=== PATIENT | female | born 1990 | race Caucasian/White ===

== ENCOUNTER 2020-05-23 22:54 | Emergency (ER) | payer OTHER ==
[~2020-05-23] VITALS: Ht 177.8 cm; Wt 100.0 kg
[2020-05-23 22:57] VITALS: BP 136/92
--- NOTE | 2020-05-23 23:50 | NUR ---
patient refused all medical care and treatment after talking with provider.
== END 2020-05-23 23:55 | disposition home or self-care (01) ==
LOC: EDBD → ER 22:56
DX: Z02.89 Encounter for other administrative examinations (principal); F43.20 Adjustment disorder, unspecified
CPT/HCPCS: 99281

== ENCOUNTER 2020-05-25 20:45 | Emergency (ER) | payer OTHER ==
[~2020-05-25] VITALS: Ht 182.9 cm; Wt 131.8 kg
[2020-05-25] MEDS ORDERED: diphenhydrAMINE 50 mg/ml inj IM ONE (20:50)
[2020-05-25] MEDS ORDERED: haloperidol lactate 5mg/ml inj IM ONE (20:50)
[2020-05-25] MEDS ORDERED: LORazepam 2 mg/ml vial IM ONE (20:50)
[2020-05-25] MEDS ORDERED: ziprasidone IM 20mg inj **IM only IM ONE (21:35)
--- NOTE | 2020-05-25 21:36 | NUR ---
pt fighting restrains and unable to follow instructions. Unable to obtain full set of vital. Only Blood pressure available at this time. Pt in view of nursing station to observe for distress.
--- NOTE | 2020-05-25 22:13 | NUR ---
PT MUCH MORE CALM AND FOLLOWING SAFETY INSTRUCTIONS AT THIS TIME. THERE ARE MULTIPLE GLASS FRAGMENTS IN THE BED ON AND ON HER PERSON. PT WAS CHANGED INTO GREEN SCRUBS AND FOAM TAPE WAS USED TO HELP REMOVE GLASS SHARDS. SHE IS GIVEN WATER WELL.
--- NOTE | 2020-05-25 23:08 | NUR ---
Spoke with Pastor Morgan Franco regarding patient's status: According to the coo, the patient had worsening psychotic behavior since she left the ED on her last visit. He stated that her erratic behavior including anger towards people who care about her and resisting any help increased his concern. She was taken to [facility] for evaluation, but refused care and continued to deteriorate psychologically. Her mom is flying from [place] to assist the patient in flying back to [place] on her scheduled flight Tuesday. added that the patient omitted on her [employer] application that she had a similar psychiatric episode 1 year ago. Alivia /Cheryl Phone number: [phone] [place] : [phone]
[2020-05-25 23:22] LABS: BASOPHILS % (AUTO) 0.2 % (0-1); EOSINOPHILS # (AUTO) 0.1 X10'3 (0-0.9); EOSINOPHILS % (AUTO) 0.6 % (0-6); HEMATOCRIT 36.1 % (35.0-45.0); HEMOGLOBIN 12.1 g/dl (12.0-16.0); LYMPHOCYTES # (AUTO) 1.7 X10'3 (1.1-4.8); MEAN CORPUSCULAR HEMOGLOBIN 28.8 PG (27.0-31.0); MEAN CORPUSCULAR HGB CONC 33.5 g/dL (33.0-36.5); MEAN CORPUSCULAR VOLUME 86.2 FL (78-98); MEAN PLATELET VOLUME 7.3 FL (7.4-10.4); MONOCYTES # (AUTO) 0.5 X10'3 (0-0.9); MONOCYTES % (AUTO) 5.7 % (2-12); NEUTROPHILS # (AUTO) 7.2 X10'3 (1.8-7.7); NEUTROPHILS % (AUTO) 75.5 % (42-75); PLATELET COUNT 343 X10'3 (140-440); RED BLOOD COUNT 4.19 X10'6 (4.20-5.60); RED CELL DISTRIBUTION WIDTH 13.5 % (11.5-14.5); WHITE BLOOD COUNT 9.5 X10'3 (4.5-11.0)
[2020-05-25 23:27] LABS: URINE HCG NEGATIVE (NEG)
[2020-05-25 23:30] LABS: ALANINE AMINOTRANSFERASE 23 U/L (12-78); ALBUMIN 3.3 G/DL (3.4-5.0); ALKALINE PHOSPHATASE 76 IU/L (46-116); ANION GAP 9 (8-16); ASPARTATE AMINO TRANSFERASE 12 U/L (10-37); BILIRUBIN,TOTAL 0.3 MG/DL (0.1-1.0); BLOOD UREA NITROGEN 9 MG/DL (7-18); BUN/CREATININE RATIO 15.8 (6.6-38.0); CALCIUM 8.7 MG/DL (8.5-10.1); CHLORIDE 108 MMOL/L (99-107); CREATININE 0.57 MG/DL (0.40-0.90); ETHANOL < 0.010 GM/DL (0.0-0.010); GLUCOSE 98 MG/DL (70-104); POTASSIUM 3.3 MMOL/L (3.5-5.1); SODIUM 142 MMOL/L (135-145); TOTAL CARBON DIOXIDE 24.6 MMOL/L (24-32); TOTAL PROTEIN 6.5 G/DL (6.4-8.2); eGFR > 90 ML/MIN
[2020-05-25 23:44] LABS: URINE AMPHETAMINE SCREEN NEGATIVE (Neg); URINE BARBITUATE SCREEN NEGATIVE (Neg); URINE BENZODIAZEPINES SCREEN NEGATIVE (Neg); URINE CANNABINOID SCREEN NEGATIVE (Neg); URINE COCAINE SCREEN NEGATIVE (Neg); URINE METHADONE SCREEN NEGATIVE (Neg); URINE OPIATE SCREEN NEGATIVE (Neg); URINE PHENCYCLIDINE SCREEN NEGATIVE (Neg)
--- NOTE | 2020-05-26 01:53 | NUR ---
PT REMAINS CALM AND COOPERATIVE. SHE IS CURRENTLY RESTING.
--- NOTE | 2020-05-26 04:02 | NUR ---
Patient has been up and walked to the bathroom. Behavior is calm and appropriate. Patient given a snack and warm blankets. Pt moved from ED room 3 to ED room 16 for better observation.
--- NOTE | 2020-05-26 07:00 | NUR ---
Room and safety environment checked and completed,wirings,suctions locked in the cabinet,patient asleep at this time,we will monitor.
--- NOTE | 2020-05-26 08:10 | NUR ---
[facility] [employer]. Insurance. Patient from [facility]. [phone], [place] [id number]
--- NOTE | 2020-05-26 08:30 | NUR ---
Patient asleep at this time.We will monitor.
--- NOTE | 2020-05-26 12:45 | NUR ---
Mental Health Counselor has been at bedside, wants to safety plan pt if we can find a safe person. Pt ambulated to overflow, where she has a bed, report given to Tg MAYS
--- NOTE | 2020-05-26 14:10 | NUR ---
Patient is awake and alert and [facility], advised RN that he is attempting to safety plan patient so she can go home. But patient must agree to take medication or they will place a 5150 on patient because she will not be safe without meds. Patient is resistant to taking medication. RN spoke to patient and patient wants to see a Psychiatrist before she will agree to take medication. RN received a verbal order from MARJ Finch to order Zyprexa 10 mg BID x 1 week to get her through. Patient has a plan ticket for [employer] to fly out tomorrow at 1600. Patient needs to agree to take medication before she is discharged. RN awaiting Dr Curiel to come see patient. Continue to monitor.
--- NOTE | 2020-05-26 16:35 | NUR ---
Patient is asking a lot of questions and has finally agreed to take medication today and tomorrow, twice and the next day. Patient understands the consequences of not taking the medication. RN to call in RX to [facility].
--- NOTE | 2020-05-26 16:37 | NUR ---
Patient's Endoscopic Technician, Morgan Franco . Morgan will merchandise pickup/receiving associate patient and take her to get her RX. He is arranging transport to airport tomorrow to go back to [place]. Patient is aware. Continue to monitor.
[2020-05-26] MEDS ORDERED: OLANZapine 5mg rapidly disint. tablet PO ONE (17:55)
[2020-05-26 17:58] VITALS: BP 140/80
== END 2020-05-26 19:27 | disposition home or self-care (01) ==
LOC: EDBD 20:46 → ER 20:46
DX: F23 Brief psychotic disorder (principal); R45.851 Suicidal ideations
CPT/HCPCS: 36415; 80053; 80305; 80320; 81025; 85025; 96372; 99285; J1200; J1630; J2060; J3486

== ENCOUNTER 2020-05-29 12:19 | Emergency (ER) | payer MEDICARE, OTHER ==
[~2020-05-29] VITALS: Ht 177.8 cm; Wt 100.0 kg
[2020-05-29] MEDS ORDERED: OLAN20TA3 PO (16:05)
== END 2020-05-29 16:25 | disposition home or self-care (01) ==
LOC: ER 12:20
DX: F23 Brief psychotic disorder (principal); F32.9 Major depressive disorder, single episode, unspecified
CPT/HCPCS: 73120; 99284